=== PATIENT | female | born 1960 | race Caucasian/White ===

== ENCOUNTER 2024-06-28 11:00 | Outpatient (CLI) | payer MEDICARE, SELFPAY ==
--- NOTE | 2024-06-28 11:00 | MR_ITS ---
WS: [id number] MRI THORACIC SPINE WITHOUT CONTRAST TECHNIQUE: Sagittal T1, T2 and STIR imaging. Axial T2 imaging. Noncontrast imaging obtained. CLINICAL INFORMATION: M96.1 - Postlaminectomy syndrome, not elsewhere classified COMPARISON: None. FINDINGS: Mild thoracic curve. Moderate thoracic kyphosis. No acute compression fractures. Mild chronic anterio r wedging in the midthoracic spine. A few endplate Schmorl's nodes in the midthoracic spine. Mild dis c bulging at T10-T12 with tiny central disc protrusions. No significant central canal stenosis. Moder ate facet arthropathy lower thoracic spine. Large esophageal hiatal hernia with partial intrathoracic stomach. Normal caliber thoracic aorta. Adr enal glands are normal. MR/MR thoracic spin wo con* [id number] IMPRESSION: 1. Large esophageal hiatal hernia with partial intrathoracic stomach. This can be further evaluated with CT abdomen pelvis. 2. Mild thoracic curve. Moderate thoracic kyphosis. No acute compression fract ures. 3. Mild disc space narrowing with tiny central protrusions in the lower thorac ic spine without significant central canal stenosis. 4. Moderate facet arthropathy lower thoracic spine.
== END 2024-06-28 11:01 | disposition home or self-care (01) ==
LOC: RAD 11:01
PROVIDERS: Family Provider Physician Assistant Medical; PCP Nurse Practitioner Family; Visit Provider Nurse Practitioner Family
DX: M96.1 Postlaminectomy syndrome, not elsewhere classified (principal); M40.204 Unspecified kyphosis, thoracic region; M51.44 Schmorl's nodes, thoracic region; M46.94 Unspecified inflammatory spondylopathy, thoracic region; K44.0 Diaphragmatic hernia with obstruction, without gangrene
CPT/HCPCS: 72146